=== PATIENT | male | born 1960 | race American Indian/Alaskan Native ===

== ENCOUNTER 2017-01-20 12:23 | Outpatient (CLI) | payer MEDICAID | END 2017-01-20 12:24 | disposition EMS.NT | DX: Z03.89 Encounter for observation for other suspected diseases and conditions ruled out (principal) ==

== ENCOUNTER 2018-08-23 20:18 | Outpatient (CLI) | payer OTHER, MEDICAID | END 2018-08-23 20:19 | disposition critical access hospital (66) | LOC: EMS 20:18 | PROVIDERS: ATTEND Surgery | DX: M79.632 Pain in left forearm (principal); V58.5XXA Driver of pick-up truck or van injured in noncollision transport accident in traffic accident, initial encounter; Y92.414 Local residential or business street as the place of occurrence of the external cause | CPT/HCPCS: A0425; A0429; A0999 ==

== ENCOUNTER 2018-08-23 20:39 | Emergency (ER) | payer OTHER, MEDICAID ==
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
[2018-08-23] MEDS ORDERED: ACETAMINOPHEN 325 MG TABLET PO STA (21:43)
[2018-08-23 21:55] VITALS: BP 117/85
== END 2018-08-23 22:22 | disposition home or self-care (01) ==
LOC: EDUNIT# → ED 20:39
DX: S50.12XA Contusion of left forearm, initial encounter (principal); V58.0XXA Driver of pick-up truck or van injured in noncollision transport accident in nontraffic accident, initial encounter
CPT/HCPCS: 73090; 99282; 99283; A9270

== ENCOUNTER 2021-10-01 21:17 | Outpatient (CLI) | payer MEDICAID | END 2021-10-01 21:18 | disposition critical access hospital (66) | LOC: EMS 21:17 | DX: R10.9 Unspecified abdominal pain (principal); R11.2 Nausea with vomiting, unspecified; R19.7 Diarrhea, unspecified; R20.8 Other disturbances of skin sensation | CPT/HCPCS: A0425; A0429; A0999 ==

== ENCOUNTER 2021-10-01 21:35 | Emergency (ER) | payer MEDICAID, OTHER ==
[2021-10-01 21:48] LABS: BASOPHILS % (AUTO) 0.2 %; EOSINOPHILS # (AUTO) 0.2 10^3/uL (0.0-0.7); EOSINOPHILS % (AUTO) 1.6 %; HCT - HEMATOCRIT 48.6 % (42.0-52.0); HGB - HEMOGLOBIN 15.7 g/dL (14.0-18.0); LYMPHOCYTES % (AUTO) 14.7 %; MEAN CORPUSCULAR HEMOGLOBIN 28.5 pg (27.0-31.0); MEAN CORPUSCULAR HGB CONC 32.3 g/dL (32.0-36.0); MEAN CORPUSCULAR VOLUME 88.2 fL (80.0-94.0); MEAN PLATELET VOLUME 8.8 fL (7.4-11.4); MONOCYTES # (AUTO) 1.2 10^3/uL (0.0-1.0); MONOCYTES % (AUTO) 8.8 %; NEUTROPHILS % (AUTO) 74.4 %; PLT - PLATELET COUNT 274 10^3/uL (130-450); RED BLOOD COUNT 5.51 10^6/uL (4.70-6.10); RED CELL DISTRIBUTION WIDTH 13.4 % (12.0-15.0); WHITE BLOOD COUNT 13.4 x10^3/uL (4.8-10.8)
[2021-10-01] MEDS ORDERED: ONDANSETRON 4 MG/2 ML VIAL IVP STA ×2 (21:48→22:44)
[2021-10-01] MEDS ORDERED: SODIUM CHLORIDE 0.9% 1,000 ML IV STA (21:49)
[2021-10-01] MEDS ORDERED: FAMOTIDINE 20 MG/2 ML VIAL IVP STA (21:49)
[2021-10-01] MEDS ORDERED: BUPRENORPHINE 0.3 MG/ML VIAL IVP ONE (21:50)
[2021-10-01 22:03] LABS: ALBUMIN 4.3 g/dL (3.2-5.5); ALBUMIN/GLOBULIN RATIO 1.4 (1.0-2.2); BILIRUBIN,TOTAL 0.7 mg/dL (0.2-1.0); CALCIUM 9.7 mg/dL (8.5-10.3); CREATININE 0.7 mg/dL (0.6-1.2); POTASSIUM 3.8 mmol/L (3.5-5.0); TOTAL PROTEIN 7.3 g/dL (6.7-8.2)
--- NOTE | 2021-10-01 22:12 | ED Physician Documentation ---
History of Present Illness - Stated complaint Stated Complaint: N/V, W/D - Chief complaint Chief Complaint: Abd Pain - History obtained from History obtained from: Patient - Additonal information Additional information: 60-year-old man with history of heroin abuse, currently living at the [place], presents with nausea, vomiting, and diarrhea that is nonbloody as well as diffuse abdominal cramping since this morning. Patient's last heroin use was >24 hours ago. denies fever/chills, urinary sx. BIBEMS with normal vital signs en route Review of Systems Ten Systems: 10 systems reviewed and negative Constitutional: reports: Myalgias. denies: Fever, Chills GI: reports: Abdominal Pain, Nausea, Vomiting, Diarrhea : denies: Dysuria PD PAST MEDICAL HISTORY - Past Medical History Cardiovascular: High cholesterol, Atrial fibrillation Respiratory: Asthma, Cystic fibrosis Endocrine/Autoimmune: None GI: GERD : None Psych: None Musculoskeletal: Chronic back pain Derm: None - Past Surgical History Past Surgical History: Yes Ortho: Shoulder arthroplasty, Spine surgery, Other Neuro: Radical neck, Other HEENT: Rhinoplasty - Present Medications Home Medications: Ambulatory Orders Medication Instructions Recorded Confirmed Aspirin 81 mg PO DAILY 10/18/16 10/18/16 Baclofen 20 mg PO TID PRN 10/18/16 10/18/16 Fenofibrate mg PO DAILY 10/18/16 10/18/16 Gabapentin 300 mg PO QID 10/18/16 10/18/16 Lactulose 10/18/16 Propranolol [Inderal] 10 mg PO BID PRN 10/18/16 10/18/16 cephALEXin [Keflex] 500 mg PO Q6H #28 capsule 10/18/16 - Allergies Allergies/Adverse Reactions: Allergies Allergy/AdvReac Type Severity Reaction Status Date / Time Penicillins Allergy Anaphylaxis Verified 10/01/21 21:42 Sulfa (Sulfonamide Allergy Rash Verified 10/01/21 21:42 Antibiotics) - Social History Does the pt smoke?: Yes Smoking Status: Current every day smoker Does the pt drink ETOH?: Yes Does the pt have substance abuse?: Yes - Immunizations Immunizations are current?: Yes - POLST Patient has POLST: No PD ED PE NORMAL - Vitals Vital signs reviewed: Yes - General General: Alert and oriented X 3, Other (uncomfortable appearing) - HEENT HEENT: Atraumatic, PERRL, EOMI, Moist mucous membranes, Pharynx benign - Neck Neck: Supple, no meningeal sign - Cardiac Cardiac: RRR - Respiratory Respiratory: No respiratory distress, Clear bilaterally - Abdomen Abdomen: Non tender, Non distended, Other (diffuse discomfort to palpation) - Back Back: No CVA TTP - Derm Derm: Normal color, Warm and dry - Extremities Extremities: No deformity - Neuro Neuro: Alert and oriented X 3 - Psych Psych: Normal mood, Normal affect Results - Vitals Vitals: Vital Signs - 24 hr 10/01/21 10/02/21 10/02/21 21:35 00:00 02:59 Temperature 36.1 C L Heart Rate 85 89 113 H Respiratory 20 18 18 Rate Blood Pressure 130/86 H 121/71 127/53 L O2 Saturation 97 100 96 Oxygen O2 Source Room air - Labs Labs: Laboratory Tests 10/01/21 10/01/21 10/02/21 21:43 21:43 03:40 WBC 13.4 H RBC 5.51 Hgb 15.7 Hct 48.6 MCV 88.2 MCH 28.5 MCHC 32.3 RDW 13.4 Plt Count 274 MPV 8.8 Neut # (Auto) 10.0 H Lymph # (Auto) 2.0 [place] # (Auto) 1.2 H Eos # (Auto) 0.2 Baso # (Auto) 0.0 Absolute Nucleated RBC 0.00 Nucleated RBC % 0.0 Sodium 143 Potassium 3.8 Chloride 108 Carbon Dioxide 23 Anion Gap 12.0 BUN 9 Creatinine 0.7 Estimated GFR (MDRD) 116 Glucose 97 Calcium 9.7 Total Bilirubin 0.7 AST 23 ALT 24 Alkaline Phosphatase 67 Total Protein 7.3 Albumin 4.3 Globulin 3.0 Albumin/Globulin Ratio 1.4 Lipase 30 Urine Color YELLOW Urine Clarity CLEAR Urine pH 5.0 Ur Specific Simpson 1.025 Urine Protein NEGATIVE Urine Glucose (UA) NEGATIVE Urine Ketones NEGATIVE Urine Occult Blood TRACE-INTA Urine Nitrite NEGATIVE Urine Bilirubin NEGATIVE Urine Urobilinogen 0.2 (NORMAL) Ur Leukocyte Esterase NEGATIVE Ur Microscopic Review NOT INDICATED Urine Culture Comments NOT INDICATED PD MEDICAL DECISION MAKING - ED course ED course: 60yM presents with heroin w/d. symptomatic care provided with improvement. patient requesting detox placement, stating he has not been able to get in despite multiple attempts on his own. will work on this overnight and have him see SW in am if we are unable to place overnight. patient to be endorsed to incoming daytime MD Dr. Francisco. Departure - Departure Disposition: 01 Home, Self Care Clinical Impression: Heroin withdrawal Condition: Good Instructions: ED Withdrawal Narcotic Follow-Up: [facility] [Provider Group] Comments: You are seen in the emergency department for heroin withdrawal and treated with multiple medications. Your lab work did not show any emergent findings. Please follow-up for addiction treatment resources. Return to the emergency department if you have any new or worsening symptoms or other concerns. [facility] [phone] [facility] [phone] Discharge Date/Time: 10/02/21 11:52
[2021-10-01] MEDS ORDERED: SODIUM CHLORIDE 0.9% 500 ML IV STA (22:45)
[2021-10-01] MEDS ORDERED: PROMETHAZINE INJ 25 MG in SODIUM CHLORIDE 0.9% 50 ML IV STA (23:15)
[2021-10-01] MEDS ORDERED: PROMETHAZINE 25 MG/1 ML VIAL ONE (23:28)
[2021-10-02 02:59] VITALS: BP 127/53
[2021-10-02 03:45] LABS: BILIRUBIN,URINE NEGATIVE (NEGATIVE); GLUCOSE, URINE (UA) NEGATIVE (NEGATIVE); KETONES,URINE (UA) NEGATIVE (NEGATIVE); LEUKOCYTE ESTERASE, URINE NEGATIVE (NEGATIVE); NITRITE,URINE NEGATIVE (NEGATIVE); OCCULT BLOOD,URINE TRACE-INTA (NEGATIVE); PROTEIN,URINE NEGATIVE (NEGATIVE); UROBILINOGEN,URINE 0.2 (NORMAL) E.U./dL (NORMAL)
[2021-10-02 03:46] LABS: CLARITY,URINE CLEAR (CLEAR)
[2021-10-02] MEDS ORDERED: BUPRENORPHINE 0.3 MG/ML VIAL IVP ONE (07:37)
[2021-10-02] MEDS ORDERED: diphenhydrAMINE INJ 50 MG/ML VIAL IVP STA (07:37)
[2021-10-02] MEDS ORDERED: PROCHLORPERAZINE 10 MG/2 ML VIAL IVP STA (07:37)
--- NOTE | 2021-10-02 11:44 | ED Physician Documentation ---
ED Addendum - Addendum Addendum: 10/02/21 11:42 60-year-old male with a history of heroin addiction has come to the emergency department seeking help for detoxification. 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 Our social media content manager was able to make arrangements for him to meet up with his book mender at the [facility] to get into treatment at [facility] this afternoon.
== END 2021-10-02 11:52 | disposition home or self-care (01) ==
LOC: EDUNIT# → ED 21:35
DX: F11.23 Opioid dependence with withdrawal (principal); I48.91 Unspecified atrial fibrillation; F17.200 Nicotine dependence, unspecified, uncomplicated
CPT/HCPCS: 36415; 80053; 81003; 83690; 85025; 96365; 96375; 96376; 99283; J0592; J1200; J7040; 81001; 87086

== ENCOUNTER 2022-10-28 12:28 | Outpatient (CLI) | payer MEDICAID | END 2022-10-28 12:29 | disposition EMS.NT | LOC: EMS 12:28 | DX: M25.531 Pain in right wrist (principal) ==

== ENCOUNTER 2022-10-28 13:58 | Emergency (ER) | payer OTHER, MEDICAID ==
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
--- NOTE | 2022-10-28 14:38 | XRAY Report ---
PROCEDURE: Wrist 4 View RT INDICATIONS: wrist inj TECHNIQUE: 4 views of the wrist were acquired. COMPARISON: None FINDINGS: Bones: No fractures or dislocations. No suspicious bony lesions. Scaphoid view: Scaphoid intact Soft tissues: No suspicious soft tissue calcifications. IMPRESSION: No evidence acute bony abnormality of the right wrist. If clinical suspicion and/or symptoms persist, further assessment with repeat plain films or advanced imaging (e.g., CT, MRI, or bone scan) may be helpful for further assessment. Reviewed by: Grzegorz Arora MD on 10/28/2022 2:37 PM PST Approved by: Grzegorz Arora MD on 10/28/2022 2:37 PM PST Station ID: [id number]
[2022-10-28 15:13] VITALS: BP 121/74
== END 2022-10-28 15:12 | disposition home or self-care (01) ==
LOC: ED 13:58
DX: S69.91XA Unspecified injury of right wrist, hand and finger(s), initial encounter (principal); X50.1XXA Overexertion from prolonged static or awkward postures, initial encounter
CPT/HCPCS: 99282; 99283

== ENCOUNTER 2022-11-13 08:00 | Outpatient (CLI) | payer MEDICAID ==
[2022-11-13 11:12] LABS: BASOPHILS # (AUTO) 0.1 10^3/uL (0.0-0.1); BASOPHILS % (AUTO) 0.9 %; EOSINOPHILS # (AUTO) 0.6 10^3/uL (0.0-0.7); EOSINOPHILS % (AUTO) 7.8 %; HCT - HEMATOCRIT 45.3 % (42.0-52.0); HGB - HEMOGLOBIN 14.5 g/dL (14.0-18.0); LYMPHOCYTES # (AUTO) 2.2 10^3/uL (1.5-3.5); LYMPHOCYTES % (AUTO) 29.6 %; MEAN CORPUSCULAR VOLUME 87.5 fL (80.0-94.0); MEAN PLATELET VOLUME 10.1 fL (7.4-11.4); MONOCYTES # (AUTO) 0.6 10^3/uL (0.0-1.0); MONOCYTES % (AUTO) 8.2 %; NEUTROPHILS % (AUTO) 53.2 %; PLT - PLATELET COUNT 158 10^3/uL (130-450); RED BLOOD COUNT 5.18 10^6/uL (4.70-6.10); RED CELL DISTRIBUTION WIDTH 14.1 % (12.0-15.0); WHITE BLOOD COUNT 7.4 x10^3/uL (4.8-10.8)
[2022-11-13 11:24] LABS: ALBUMIN 4.6 g/dL (3.2-5.5); ALBUMIN/GLOBULIN RATIO 1.6 (1.0-2.2); BILIRUBIN,TOTAL 0.6 mg/dL (0.2-1.0); CALCIUM 9.4 mg/dL (8.5-10.3); CREATININE 0.7 mg/dL (0.6-1.2); POTASSIUM 4.3 mmol/L (3.5-5.0); TOTAL PROTEIN 7.4 g/dL (6.7-8.2)
== END 2022-11-13 23:59 | disposition home or self-care (01) ==
LOC: LAB.R 08:00
PROVIDERS: ATTEND Registered Nurse
DX: R79.89 Other specified abnormal findings of blood chemistry (principal); R68.89 Other general symptoms and signs; R70.0 Elevated erythrocyte sedimentation rate; R94.6 Abnormal results of thyroid function studies
CPT/HCPCS: 80053; 84443; 85025; 85651

== ENCOUNTER 2023-04-03 07:02 | Outpatient (CLI) | payer MEDICAID | END 2023-04-03 07:03 | disposition EMS.NT | LOC: EMS 07:02 | DX: Z03.89 Encounter for observation for other suspected diseases and conditions ruled out (principal) ==